=== PATIENT | female | born 1960 | race Caucasian/White ===

== ENCOUNTER 2018-07-03 23:22 | Emergency (ER) | payer MEDICARE, MEDICAID ==
[~2018-07-03] VITALS: Ht 172.7 cm; Wt 100.0 kg
[~2018-07-03 23:22] MED LIST: ARIP400S3 IM; DIPH25CA83 PO; DIVA500T9 PO; FERR325T39 PO; FLUT1DIS4 IH; HYDR50CA PO; PALI819S IM; PROL2.5I IM; RIVA10TA PO; ZOLP10TA5 PO
[2018-07-03] MEDS ORDERED: XARELTO 10 MG (23:34)
[2018-07-03] MEDS ORDERED: ESCITALOPRAM 5 MG (23:34)
[2018-07-03] MEDS ORDERED: MIRTAZAPINE 30 MG (23:34)
[2018-07-03] MEDS ORDERED: DIVALPROEX 500 MG (23:34)
[2018-07-03] MEDS ORDERED: TRAZODONE TAB 50MG (23:34)
[2018-07-03] MEDS ORDERED: INVEGA 3 MG (23:34)
[2018-07-04] MEDS ORDERED: ketorolac trometh inj. 60 MG/2 ML VIAL IM ONE (00:05)
[2018-07-04] MEDS ORDERED: HYDROcodone/acetaminophen 5mg/325mg tablet PO ONE (00:05)
[2018-07-04] MEDS ORDERED: HYDR-3965 PO (00:05)
[2018-07-04] MEDS ORDERED: acetaminophen 325mg tablet PO ONE (00:05)
[2018-07-04 00:45] VITALS: BP 132/72
== END 2018-07-04 00:52 | disposition home or self-care (01) ==
LOC: ER 23:22
DX: G89.29 Other chronic pain (principal); M54.5 Low back pain; J43.9 Emphysema, unspecified; M19.90 Unspecified osteoarthritis, unspecified site; Z86.718 Personal history of other venous thrombosis and embolism; F15.90 Other stimulant use, unspecified, uncomplicated; Z98.890 Other specified postprocedural states; Z88.8 Allergy status to other drugs, medicaments and biological substances; Z79.899 Other long term (current) drug therapy; Z87.891 Personal history of nicotine dependence; Z56.0 Unemployment, unspecified
CPT/HCPCS: 96372; 99283; J1885

== ENCOUNTER 2019-07-13 12:23 | Emergency (ER) | payer MEDICARE, MEDICAID ==
[~2019-07-13] VITALS: Ht 175.3 cm; Wt 109.1 kg
[~2019-07-13 12:23] MED LIST changes: +DIVALPROEX 500 MG; +ESCITALOPRAM 5 MG; +INVEGA 3 MG; +MIRTAZAPINE 30 MG; +TRAZODONE TAB 50MG; +XARELTO 10 MG
[2019-07-13 12:33] VITALS: BP 127/87
[2019-07-14] MEDS ORDERED: OXYB5TAB16 PO (23:34)
[2019-07-14] MEDS ORDERED: ALBU18HF2 INH (23:34)
== END 2019-07-13 14:45 | disposition left against medical advice (07) ==
LOC: ER 12:24
DX: M25.551 Pain in right hip (principal); M25.511 Pain in right shoulder; M25.571 Pain in right ankle and joints of right foot; M25.531 Pain in right wrist; F17.210 Nicotine dependence, cigarettes, uncomplicated; Z53.21 Procedure and treatment not carried out due to patient leaving prior to being seen by health care provider; W22.01XA Walked into wall, initial encounter; Y93.89 Activity, other specified; Y92.009 Unspecified place in unspecified non-institutional (private) residence as the place of occurrence of the external cause; Y99.8 Other external cause status

== ENCOUNTER 2019-07-14 22:25 | Emergency (ER) | payer MEDICARE, MEDICAID ==
[~2019-07-14] VITALS: Ht 175.3 cm; Wt 127.3 kg
[2019-07-14] MEDS ORDERED: LORazepam 2 mg/ml vial IM ONE (22:50)
[2019-07-14] MEDS ORDERED: nystatin 15 GM powder TP ONE (22:50)
--- NOTE | 2019-07-14 22:55 | NUR ---
POISON CONTROL CONTACTED
[2019-07-14 22:57] LABS: MEAN PLATELET VOLUME 8.8 FL (7.4-10.4)
[2019-07-14 22:59] LABS: BASOPHILS % (AUTO) 0.2 % (0-1); EOSINOPHILS # (AUTO) 0.1 X10'3 (0-0.9); EOSINOPHILS % (AUTO) 1.5 % (0-6); HEMOGLOBIN 10.2 g/dl (12.0-16.0); LYMPHOCYTES # (AUTO) 1.3 X10'3 (1.1-4.8); LYMPHOCYTES % (AUTO) 18.4 % (21-51); MEAN CORPUSCULAR VOLUME 96.9 FL (78-98); MONOCYTES % (AUTO) 13.9 % (2-12); NEUTROPHILS # (AUTO) 4.6 X10'3 (1.8-7.7); PLATELET COUNT 159 X10'3 (140-440); RED CELL DISTRIBUTION WIDTH 13.4 % (11.5-14.5); WHITE BLOOD COUNT 6.9 X10'3 (4.5-11.0)
--- NOTE | 2019-07-14 22:59 | NUR ---
PT TO CT WITH HOME HEALTH CLINICAL LIAISON AND HOME SERVICE TECHNICIAN SIMON
[2019-07-14 23:11] LABS: CLARITY,URINE SLIGHTLY CLOUDY (Clear); COLOR,URINE YELLOW (Yellow); GLUCOSE, URINE NEGATIVE (Neg); KETONES,URINE NEGATIVE (Neg); LEUKOCYTE ESTERASE ,URINE TRACE (Neg); NITRITES, URINE NEGATIVE (Neg); OCCULT BLOOD,URINE NEGATIVE (Neg); PH,URINE 6.5 (4.8-8.0); PROTEIN,URINE NEGATIVE (Neg); UROBILINOGEN,URINE 0.2 E.U/dL (0.2-1.0)
[2019-07-14 23:17] LABS: UA COLLECTION TYPE CLN CATCH MIDSTREAM
[2019-07-14 23:18] LABS: URINE AMPHETAMINE SCREEN POSITIVE (Neg); URINE BARBITUATE SCREEN NEGATIVE (Neg); URINE BENZODIAZEPINES SCREEN NEGATIVE (Neg); URINE CANNABINOID SCREEN POSITIVE (Neg); URINE COCAINE SCREEN NEGATIVE (Neg); URINE METHADONE SCREEN NEGATIVE (Neg); URINE OPIATE SCREEN NEGATIVE (Neg); URINE PHENCYCLIDINE SCREEN NEGATIVE (Neg)
[2019-07-14 23:19] LABS: BACTERIA,URINE FEW /HPF (Neg); RBC,URINE NONE SEEN /HPF (0-2); SQUAMOUS EPITHELIAL CELL,UR MODERATE /LPF (FEW); WBC,URINE 0-4 /HPF (0-4)
[2019-07-14 23:23] LABS: ALANINE AMINOTRANSFERASE 7 U/L (12-78); ALBUMIN 2.6 G/DL (3.4-5.0); ALBUMIN/GLOBULIN RATIO 0.7 (1.1-1.5); ALKALINE PHOSPHATASE 55 IU/L (46-116); ANION GAP 7 (8-16); ASPARTATE AMINO TRANSFERASE 15 U/L (10-37); BILIRUBIN,TOTAL 0.1 MG/DL (0.1-1.0); BLOOD UREA NITROGEN 21 MG/DL (7-18); BUN/CREATININE RATIO 17.1 (6.6-38.0); CALCIUM 8.3 MG/DL (8.5-10.1); CHLORIDE 103 MMOL/L (99-107); CREATININE 1.23 MG/DL (0.40-0.90); ETHANOL < 0.010 GM/DL (0.0-0.010); GLUCOSE 120 MG/DL (70-104); POTASSIUM 3.3 MMOL/L (3.5-5.1); SODIUM 136 MMOL/L (135-145); TOTAL CARBON DIOXIDE 26.1 MMOL/L (24-32); TOTAL PROTEIN 6.1 G/DL (6.4-8.2); eGFR 45 ML/MIN
[2019-07-14 23:24] LABS: VALPROATE 29 UG/ML (50-100)
[2019-07-14 23:25] LABS: ACETAMINOPHEN < 2.0 UG/ML (10-30)
[2019-07-14] MEDS ORDERED: OXYB5TAB16 PO (23:34)
[2019-07-14] MEDS ORDERED: ALBU18HF2 INH (23:34)
--- NOTE | 2019-07-15 00:41 | NUR ---
POISON CONTROL CONTACTED IN REGARDS TO PT STATING SHE TOOK 9 500 MG DEPAKOTE .
--- NOTE | 2019-07-15 00:43 | NUR ---
POSION CONTROL ASKED ABOUT VS 98 % RA RR 18 127/72 76 RECOMEND TO CHECK VALORIC ACID Q 4 HRS FOR ELEVATION WELL AMMONIA LEVEL . REPRESENTIVE STATSES THAT THE STATED AMOUNT OF PILLS THE PATIENT TOOK WAS NOT TOXIC HOWEVER THE VALPORIC ACID SHOULD BE FOLLOWED FOR [address] GERBER OF THE CALL .
--- NOTE | 2019-07-15 00:48 | NUR ---
PT TRANSFERED OVER TO OVERFLOW BED 23 VIA GURNEY .
--- NOTE | 2019-07-15 00:53 | NUR ---
The patient tranferred to bed #23 via [facility]. She is orented to day and date. She is rapidly talking but is very tangential.
--- NOTE | 2019-07-15 01:09 | NUR ---
packet faxed to [facility]
--- NOTE | 2019-07-15 04:16 | NUR ---
The patient currently appears to be sleeping
--- NOTE | 2019-07-15 05:09 | NUR ---
The patient appears to be sleeping
--- NOTE | 2019-07-15 05:55 | NUR ---
Received call from poison control who are recommended a repeat depakote level and an amonia level and Dr. Carmen was made aware.
--- NOTE | 2019-07-15 06:57 | NUR ---
Patient resting in bed peacefully at this time. Audibly snoring, no distress observed.
--- NOTE | 2019-07-15 08:42 | NUR ---
Zay, [facility] is at bedside assessing patient. No distress observed.
--- NOTE | 2019-07-15 09:17 | NUR ---
Zay from [facility] is going to keep this patient on a mental health hold. Patient is heard yelling and cussing at Zay, stating, "he is in my ass, get out of here". Patient was redirectable and is currently resting in bed peacefully
--- NOTE | 2019-07-15 09:23 | NUR ---
Spoke to Poison Control. No further actions recommended at this time.
--- NOTE | 2019-07-15 11:11 | NUR ---
pt sleeping and snoring in bed. no needs at this time.
--- NOTE | 2019-07-15 12:18 | NUR ---
pt up to bathroom with walker and nurse aid assistance.
[2019-07-15] MEDS ORDERED: POTASSIUM BICARB 20meq eff tab 20 MEQ TABLET.EFF PO ONE (14:05)
--- NOTE | 2019-07-15 14:16 | NUR ---
sitting up in bed responding to internal stemuli. occationally gets loud and worked up then calms down. up to bathroom with walker for stability.
--- NOTE | 2019-07-15 14:52 | NUR ---
pt states she smokes a pack of cigarettes a day and requesting a nicotine patch. Dr. Miranda aware and order obtained for patch.
[2019-07-15] MEDS: nicotine 14mg patch - 24hr TD SCH (15:05)
--- NOTE | 2019-07-15 17:19 | NUR ---
pt sitting up in bed shouting obsenities. communicating with internal stimuli. order for Ativan 2mg PO obtained. will administer.
[2019-07-15] MEDS ORDERED: LORazepam 1 MG tablet PO ONE (17:20)
--- NOTE | 2019-07-15 17:32 | NUR ---
pt ambulated to bathroom with walker, no assistance needed. po ativan given.
--- NOTE | 2019-07-15 17:45 | NUR ---
pt acting out and yelling, demanding food. calling the staff names. asked pt to sit in room and calm herself, walked to room and sat in bed but still talking loud and cursing. pt not making any sense. flight of ideas.
[2019-07-15] MEDS ORDERED: albuterol 2.5 MG/3 ML nebule NEB PRN (19:10)
[2019-07-15] MEDS: divalproex sod 250mg ER (24-hour) tablet PO SCH (21:23)
--- NOTE | 2019-07-16 00:28 | NUR ---
relieving RN for break, pt is sleeping on bed, resp even and unlabored
--- NOTE | 2019-07-16 01:25 | NUR ---
Pt is sleeping, no s/s of distress noted.
--- NOTE | 2019-07-16 02:27 | NUR ---
Pt is sleeping, no s/s of distress noted. rr unlabored.
--- NOTE | 2019-07-16 03:41 | NUR ---
Pt is sleeping, no s/s of distress noted. rr unlabored.
--- NOTE | 2019-07-16 05:10 | NUR ---
Pt continues to sleep, rr unlabored, no s/s of distress noted.
--- NOTE | 2019-07-16 07:04 | NUR ---
asleep laying on side respirations even and unlabored
[2019-07-16] MEDS: oxybutynin 5mg tablet PO SCH (07:46)
[2019-07-16] MEDS: nicotine 14mg patch - 24hr TD SCH (07:46)
[2019-07-16] MEDS: divalproex sod 250mg ER (24-hour) tablet PO SCH ×2 (07:46→20:16)
--- NOTE | 2019-07-16 08:09 | NUR ---
Patient done eating breakfast laying down on side resting awake in bed
--- NOTE | 2019-07-16 09:03 | NUR ---
using the restroom
--- NOTE | 2019-07-16 09:18 | NUR ---
resting in bed
--- NOTE | 2019-07-16 09:32 | NUR ---
Laying in bed keeps requesting juice and/or coffee
--- NOTE | 2019-07-16 10:26 | NUR ---
Patient did not urinate
--- NOTE | 2019-07-16 11:00 | NUR ---
sleeping in bed
--- NOTE | 2019-07-16 11:07 | NUR ---
move patient to room 20 further away from the fire alarm. Addendum: 07/16/19 at 1622 by IBIS wrong patient
--- NOTE | 2019-07-16 14:01 | NUR ---
Sleeping on side
--- NOTE | 2019-07-16 14:43 | NUR ---
using the restroom
--- NOTE | 2019-07-16 14:46 | NUR ---
back in bed
--- NOTE | 2019-07-16 15:00 | NUR ---
sitting up in bed eating a snack
[2019-07-16] MEDS ORDERED: RIVA10TA PO (15:55)
[2019-07-16] MEDS ORDERED: diphenhydrAMINE 25mg capsule PO ONE (16:15)
--- NOTE | 2019-07-16 16:22 | NUR ---
Sitting up in bed
--- NOTE | 2019-07-16 17:02 | NUR ---
talking to staff
--- NOTE | 2019-07-16 18:03 | NUR ---
Talking to staff
[2019-07-17 05:58] VITALS: BP 159/94
--- NOTE | 2019-07-17 08:00 | NUR ---
[facility] called and is requesting a CXR on pt prior to being accepted upstairs. [facility] would like everyone accepted to have a COVID-19 test. cake puller Kelly informed and will ask MD if he agrees to CXR.
[2019-07-17] MEDS: nicotine 14mg patch - 24hr TD SCH (08:52)
[2019-07-17] MEDS: oxybutynin 5mg tablet PO SCH (08:53)
[2019-07-17] MEDS: divalproex sod 250mg ER (24-hour) tablet PO SCH (08:53)
--- NOTE | 2019-07-17 09:07 | NUR ---
called [facility] and requested the pt's med list. they state they will fax it over.
[2019-07-17] MEDS ORDERED: amox tr/potassium clavulanate 875/125mg TAB PO ONE (09:25)
[2019-07-17] MEDS ORDERED: LIDO1ADH67 TOP (10:35)
[2019-07-17] MEDS ORDERED: RIVA10TA PO (10:35)
[2019-07-17] MEDS ORDERED: PALI6TAB PO (10:35)
[2019-07-17] MEDS ORDERED: OXYC-658 PO (10:35)
[2019-07-17] MEDS ORDERED: PROL2.5I IM (10:35)
[2019-07-17] MEDS ORDERED: DIPH50CA37 PO (10:35)
[2019-07-17] MEDS ORDERED: TRAM50TA2 PO (10:40)
[2019-07-17] MEDS ORDERED: OXYB5TAB16 PO (10:40)
[2019-07-17] MEDS ORDERED: traMADol 50MG tablet PO PRN (10:55)
[2019-07-17] MEDS ORDERED: fluphenazine decanoate**IM** 25mg/ml inj. IM SCH (10:55)
--- NOTE | 2019-07-17 11:35 | NUR ---
Pt's covid test back:negative. FELIPE Walker @ [facility] notified as transfer was pending results.
[2019-07-17] MEDS ORDERED: rivaroxaban 10mg tablet PO SCH (12:00)
[2019-07-17] MEDS ORDERED: PALIPERIDONE 3 MG TAB.ER.24 PO SCH (12:00)
--- NOTE | 2019-07-17 12:42 | NUR ---
Pt accepted at [facility]. Pt being transferred with belongings, med form for meds stored in pharmacy and discharge paperwork in stable condition.
[2019-07-17] MEDS ORDERED: AMOX-422 PO (15:44)
[2019-07-17] MEDS ORDERED: amox tr/potassium clavulanate 875/125mg TAB PO SCH (17:30)
[2019-07-17] MEDS ORDERED: oxybutynin 5mg tablet PO SCH (21:00)
[2019-07-17] MEDS ORDERED: diphenhydrAMINE 25mg capsule PO SCH (21:00)
[2019-07-18] MEDS ORDERED: LIDOcaine 5% patch TP PRN (08:00)
== END 2019-07-17 12:30 ==
LOC: ER 22:25
DX: F15.959 Other stimulant use, unspecified with stimulant-induced psychotic disorder, unspecified (principal); F31.9 Bipolar disorder, unspecified; R41.82 Altered mental status, unspecified; J43.9 Emphysema, unspecified; M19.90 Unspecified osteoarthritis, unspecified site; G89.29 Other chronic pain; F20.9 Schizophrenia, unspecified; Z86.718 Personal history of other venous thrombosis and embolism; Z98.890 Other specified postprocedural states; Z88.8 Allergy status to other drugs, medicaments and biological substances; Z79.899 Other long term (current) drug therapy
CPT/HCPCS: 96372; 99285; J2060; 36415; 70450; 71045; 80053; 80164; 80178; 80305; 80320; 80329; 81001; 82140; 85025; 87635; 93005

== ENCOUNTER 2019-07-17 12:28 | Inpatient (IN) | payer MEDICARE, MEDICAID ==
[~2019-07-17] VITALS: Ht 172.7 cm; Wt 110.5 kg
[~2019-07-17 12:28] MED LIST changes: +ALBU18HF2 INH; -ARIP400S3 IM; -DIPH25CA83 PO; +DIPH50CA37 PO; -DIVALPROEX 500 MG; -ESCITALOPRAM 5 MG; -FERR325T39 PO; -FLUT1DIS4 IH; -HYDR50CA PO; -INVEGA 3 MG; +LIDO1ADH67 TOP; -MIRTAZAPINE 30 MG; +OXYB5TAB16 PO; +OXYC-658 PO; +PALI6TAB PO; +TRAM50TA2 PO; -TRAZODONE TAB 50MG; -XARELTO 10 MG; -ZOLP10TA5 PO
[2019-07-17] MEDS ORDERED: mag hydrox/Alum hydrox/simeth 30ml oral suspension PO PRN (13:10)
[2019-07-17] MEDS ORDERED: acetaminophen 325mg tablet PO PRN ×2 (13:10)
[2019-07-17] MEDS ORDERED: quetiapine 100mg tablet PO PRN (13:10)
[2019-07-17] MEDS ORDERED: loperamide 2mg capsule PO PRN (13:10)
[2019-07-17] MEDS ORDERED: magnesium hydroxide 30ml (MOM) UD suspension PO PRN (13:10)
[2019-07-17] MEDS ORDERED: NICOTINE POLACRILEX 2 MG LOZENGE BC PRN (13:10)
[2019-07-17] MEDS ORDERED: traZODone 50mg tablet PO PRN (13:10)
[2019-07-17 15:00] VITALS: BP 126/81
[2019-07-17] MEDS: nystatin 15 GM powder TP SCH ×2 (15:30→20:35)
[2019-07-17] MEDS ORDERED: AMOX-422 PO (15:44)
--- NOTE | 2019-07-17 15:45 | NUR ---
Pt on a 5150 after BIB [facility] for DTS and GD; pt supposedly over dosed on 7 depakote and couldn't make viable plan for self care. Pt stated she was Radha Price. Pt was positive for methamphetamines and THC. Pt was cooperative with admission. Pt denies S.I. and H.I. and auditory hallucinations but thought blocking was observed as was whispering to herself. Pt did exhibit delusional thought processes and stated, "my mother in law was Papito Mahoney and she at 47 years old." Pt tearful at times during assessment and stated she was sad r/t her passing away 1 1/2 years ago. Pt uses a walker, but is independent with ADLs. Skin check and pictures completed by Rick RNs and belongings checked and logged in.
[2019-07-17] MEDS ORDERED: fluphenazine decanoate**IM** 25mg/ml inj. IM SCH (16:05)
[2019-07-17] MEDS ORDERED: albuterol 2.5 MG/3 ML nebule NEB PRN (16:05)
[2019-07-17] MEDS ORDERED: LIDOcaine 5% patch TP PRN (16:05)
[2019-07-17] MEDS ORDERED: FLUPHENAZINE DECANOATE IM SCH (16:30)
[2019-07-17 20:03] VITALS: BP 148/97
[2019-07-17] MEDS: amox tr/potassium clavulanate 875/125mg TAB PO SCH (20:35)
[2019-07-17] MEDS: oxybutynin 5mg tablet PO SCH (20:35)
[2019-07-17] MEDS: divalproex sod 250mg ER (24-hour) tablet PO SCH (20:35)
[2019-07-17] MEDS: PALIPERIDONE 3 MG TAB.ER.24 PO SCH (20:35)
[2019-07-17] MEDS: diphenhydrAMINE 25mg capsule PO SCH (20:35)
[2019-07-17] MEDS ORDERED: nystatin 15 GM powder TP SCH (21:00)
[2019-07-17 21:05] LABS: CLARITY,URINE CLEAR (Clear); COLOR,URINE YELLOW (Yellow); GLUCOSE, URINE NEGATIVE (Neg); KETONES,URINE NEGATIVE (Neg); LEUKOCYTE ESTERASE ,URINE NEGATIVE (Neg); NITRITES, URINE NEGATIVE (Neg); OCCULT BLOOD,URINE NEGATIVE (Neg); PROTEIN,URINE NEGATIVE (Neg); UROBILINOGEN,URINE 0.2 E.U/dL (0.2-1.0)
[2019-07-17 21:09] LABS: UA COLLECTION TYPE NON-SPECIFIED
--- NOTE | 2019-07-18 01:02 | NUR ---
Nursing Progress Note: [facility] Legal hold: 5150 Client on involuntary status for DTS. Report received from ANGE Walker with use of SBAR. Why are they here: Pt was placed on a 5150 hold due to DTS. Pt apparently overdosed on 7, 500mg Depakote and could not make a liable plan to care for self. Pt presents as delusional and disorganized thought process. She was positive for methamphetamine. Pt is currently denying any S/I, H/I and states she never had thoughts to harm herself. She has a history of COPD, Emphysema, Arthritis, Chronic Pain, Chronic Back Pain, Deep Vein Thrombosis, Bipolar, Depression, Psychosis, Schizophrenia. Assessment What has happened this shift: Pt was in her room during shift change. She states that she is here by mistake. Apparently she was trying to light a cigarette and burned one of her breasts. Her friend called the automobile glass technician and they decided to bring her in. Before leaving she states that she took her Depakote and since it was 7 of them, they believed she was trying to kill herself. She denies any s/i, h/i, and just wants to get home by mothers day because she is hoping to take her cat to [place] with her daughter. When asked about hallucinations, she denies but states that she has had them before. Talks about a time when she thought that she had a rope wrapped around her throat but knows that it wasnt true because she was the only one home. Pt becomes teary when talking about her son that he never met. She states that he was taken away when he was 3 months old. She does make some delusional statements, as reported by PCT, patient was looking at a magazine and is adamant that the person in the magazine is her daughter. She does not appear to be responding to internal stimuli. UA was obtained due to strong odor but results came back negative. She does admit to being incontinent and had a couple incidents thought out the night. S/I, H/I: Denies A/VH: Denies Sleep: Currently sleeping, see sleep assessment for total hours ADL's: Requires assistance, incontinent of urine, uses walker Group attendance: None during shift superintendent caustic cresylate Were meds taken: Yes Any med S/E: None reported or observed Mental Status Exam Appearance: Disheveled, wearing personal clothing, hair is messy and unkempt Eye contact: Good, direct Behavior: Cooperative, calm, Speech: There is some thought blocking observed, she also mumbles at times Mood: Euthymic Affect: Congruent with mood Thought process: Circumstantial Thought Content: Family, her cat, going home by mother's day, medication Cognition: Alert and oriented X4 Insight: Poor Judgment: Poor Interventions PRN's used: Tylenol Therapeutic interventions: 1:1 assessment, therapeutic conversation, active listening, maintained a safe and therapeutic environment, monitored behaviors and need for intervention, encouragement to perform personal hygiene, Q 15 min safety checks. Restraints/seclusion/emergency medication: N/A Justification of Continued Inpatient Treatment: Pt requires interruption of current crisis, medication administration, and is in need of a safe, supportive environment. Medication adjustments to stabilize patient and decrease risk of readmission.
[2019-07-18 07:19] VITALS: BP 131/80
[2019-07-18 07:53] LABS: HEMOGLOBIN A1C 5.4 % (4.5-6.2)
[2019-07-18 07:56] LABS: CHOL/HDL RATIO 2.1 (0.00-4.99); CHOLESTEROL 90 MG/DL (0-200); HDL CHOLESTEROL 42 MG/DL (35-60); LDL CHOLESTEROL 36 MG/DL (50-100); TRIGLYCERIDES 39 MG/DL (20-135)
[2019-07-18] MEDS: amox tr/potassium clavulanate 875/125mg TAB PO SCH ×2 (08:10→20:19)
[2019-07-18] MEDS: rivaroxaban 10mg tablet PO SCH (08:10)
[2019-07-18] MEDS: divalproex sod 250mg ER (24-hour) tablet PO SCH ×2 (08:10→20:21)
[2019-07-18] MEDS: nicotine 21mg patch - 24 hr TD SCH (08:11)
[2019-07-18] MEDS: nystatin 15 GM powder TP SCH ×3 (08:11→21:34)
[2019-07-18] MEDS: LORazepam 1 MG tablet PO PRN (14:54)
--- NOTE | 2019-07-18 16:39 | NUR ---
Nursing Progress Note: Legal hold: 5150 Client on involuntary status for DTS. Report received from FELIPE Oliva with use of SBAR. Why are they here: Pt was placed on a 5150 hold due to DTS. Pt apparently overdosed on 7, 500mg Depakote and could not make a liable plan to care for self. Pt presents as delusional and disorganized thought process. She was positive for methamphetamine. Pt is currently denying any S/I, H/I and states she never had thoughts to harm herself. She has a history of COPD, Emphysema, Arthritis, Chronic Pain, Chronic Back Pain, Deep Vein Thrombosis, Bipolar, Depression, Psychosis, Schizophrenia. Assessment What has happened this shift: Patient awake at change of shift. Patient is busy socializing with peers. Patient reports that she took 7 Depakote because she couldn't remember if she had taken them in the morning. She adamantly states that it was not a suicide attempt. She does state that she burned her hair and her breast on the stove prior to admit. Patient denies A/V/H. S/I, H/I: Denies A/VH: Denies Sleep: Napped after breafast ADL's: Needs assistance. Walks with walker, weak gait. Group attendance: NA Were meds taken: Yes Any med S/E: None reported or observed Mental Status Exam Appearance: Large disheveled woman wearing personal attire. Eye contact: Good, direct Behavior: Cooperative, calm, socializes. Speech: Clear, hyperverbal. Mood: Euthymic Affect: Congruent with mood Thought process: Circumstantial Thought Content: Family, her cat, going home by mother's day Cognition: Alert and oriented X4 Insight: Poor Judgment: Poor Interventions PRN's used: Ativan Therapeutic interventions: 1:1 assessment, therapeutic conversation, active listening, maintained a safe and therapeutic environment, monitored behaviors and need for intervention, encouragement to perform personal hygiene, Q 15 min safety checks. Restraints/seclusion/emergency medication: N/A Justification of Continued Inpatient Treatment: Pt requires interruption of current crisis, medication administration, and is in need of a safe, supportive environment. Medication adjustments to stabilize patient and decrease risk of readmission.
[2019-07-18 20:00] VITALS: BP 138/91
[2019-07-18] MEDS: PALIPERIDONE 3 MG TAB.ER.24 PO SCH (20:20)
[2019-07-18] MEDS: diphenhydrAMINE 25mg capsule PO SCH (20:20)
[2019-07-18] MEDS: oxybutynin 5mg tablet PO SCH (20:20)
--- NOTE | 2019-07-19 02:28 | NUR ---
Nursing Progress Note: Legal hold: 5150 Client on involuntary status for DTS. Report received from FELIPE Walker with use of SBAR. Why are they here: Pt was placed on a 5150 hold due to DTS. Pt apparently overdosed on 7, 500mg Depakote and could not make a liable plan to care for self. Pt presents as delusional and disorganized thought process. She was positive for methamphetamine. Pt is currently denying any S/I, H/I and states she never had thoughts to harm herself. She has a history of COPD, Emphysema, Arthritis, Chronic Pain, Chronic Back Pain, Deep Vein Thrombosis, Bipolar, Depression, Psychosis, Schizophrenia. Assessment What has happened this shift: Patient in room sleeping at the start of the shift. She awoke just before Snack and Meds. Pt ambulated with her Fww out of her room to a chair in the aleman by the Nurses station. She was med compliant and had no complaints. Pt returned to her room after snack and Meds. Pt up at 0200 c/o bad dream and requested a prn for sleep that was helpful. S/I, H/I: Denies A/VH: Denies Sleep: Napped ADL's: Needs assistance. Walks with walker, weak gait. Group attendance: NA Were meds taken: Yes Any med S/E: None reported or observed Mental Status Exam Appearance: Large disheveled woman wearing personal attire. Eye contact: Good, direct Behavior: Cooperative, calm, socializes. Speech: Clear, hyperverbal. Mood: Euthymic Affect: Congruent with mood Thought process: Circumstantial Thought Content: Family, her cat, going home by mother's day Cognition: Alert and oriented X4 Insight: Poor Judgment: Poor Interventions PRN's used: Trazodone Therapeutic interventions: 1:1 assessment, therapeutic conversation, active listening, maintained a safe and therapeutic environment, monitored behaviors and need for intervention, encouragement to perform personal hygiene, Q 15 min safety checks. Restraints/seclusion/emergency medication: N/A Justification of Continued Inpatient Treatment: Pt requires interruption of current crisis, medication administration, and is in need of a safe, supportive environment. Medication adjustments to stabilize patient and decrease risk of readmission.
[2019-07-19] MEDS: divalproex sod 250mg ER (24-hour) tablet PO SCH ×2 (07:11→20:32)
[2019-07-19] MEDS: nystatin 15 GM powder TP SCH ×3 (07:11→20:01)
[2019-07-19] MEDS: nicotine 21mg patch - 24 hr TD SCH (07:11)
[2019-07-19] MEDS: rivaroxaban 10mg tablet PO SCH (07:12)
[2019-07-19] MEDS: amox tr/potassium clavulanate 875/125mg TAB PO SCH ×2 (07:12→20:32)
[2019-07-19] MEDS: LORazepam 1 MG tablet PO PRN ×2 (07:12→14:12)
[2019-07-19] MEDS: traMADol 50MG tablet PO PRN ×2 (07:33→19:27)
[2019-07-19 07:42] VITALS: BP 101/62
--- NOTE | 2019-07-19 15:51 | NUR ---
Nursing Progress Note: Legal hold: 5150 Client on involuntary status for DTS. Report received from Ashleigh Mota RN with use of SBAR. Why are they here: Pt was placed on a 5150 hold due to DTS. Pt apparently overdosed on 7, 500mg Depakote and could not make a plan to care for self. Pt presents as delusional and disorganized thought process. She was positive for methamphetamine. Pt is currently denying any S/I, H/I and states she never had thoughts to harm herself. She has a history of COPD, Emphysema, Arthritis, Chronic Pain, Chronic Back Pain, Deep Vein Thrombosis, Bipolar, Depression, Psychosis, Schizophrenia. Assessment What has happened this shift: Patient is resting in bed peacefully at change of shift. Patient is busy socializing with peers. Patient continues to adamantly state that it was not a suicide attempt when she took her depakote. She reports she was confused. She currently denies SI/HI and A/VH. She takes her medications as ordered without incident. She is seen sitting in the day room and talking to peers and staff. She is also seen napping intermittently throughout the day. She reports some anxiety and pain and medications were provided PRN for these concerns. S/I, H/I: Denies A/VH: Denies Sleep: Napped intermittently throughout the day ADL's: Needs assistance. Walks with walker, weak gait. Group attendance: NA Were meds taken: Yes Any med S/E: None reported or observed Mental Status Exam Appearance: wearing personal clothing, hair is disheveled Eye contact: Good, direct Behavior: Cooperative, calm, socializes. Speech: Clear, hyperverbal. Mood: Euthymic Affect: Congruent with mood Thought process: Circumstantial Thought Content: wanting to go home, wanting juice and snacks, being anxious, being in pain. Cognition: Alert and oriented X4 Insight: Poor Judgment: Poor Interventions PRN's used: Ativan x2, tramadol Therapeutic interventions: 1:1 assessment, therapeutic conversation, active listening, maintained a safe and therapeutic environment, monitored behaviors and need for intervention, encouragement to perform personal hygiene, Q 15 min safety checks. Restraints/seclusion/emergency medication: N/A Justification of Continued Inpatient Treatment: Pt requires interruption of current crisis, medication administration, and is in need of a safe, supportive environment. Medication adjustments to stabilize patient and decrease risk of readmission.
[2019-07-19 20:08] VITALS: BP 143/95
[2019-07-19] MEDS: oxybutynin 5mg tablet PO SCH (20:32)
[2019-07-19] MEDS: PALIPERIDONE 3 MG TAB.ER.24 PO SCH (20:32)
[2019-07-19] MEDS: diphenhydrAMINE 25mg capsule PO SCH (20:34)
--- NOTE | 2019-07-20 02:55 | NUR ---
Nursing Progress Note: Legal hold: 5150 Client on involuntary status for DTS. Report received from Ashleigh Mota RN with use of SBAR. Why are they here: Pt was placed on a 5150 hold due to DTS. Pt apparently overdosed on 7, 500mg Depakote and could not make a plan to care for self. Pt presents as delusional and disorganized thought process. She was positive for methamphetamine. Pt is currently denying any S/I, H/I and states she never had thoughts to harm herself. She has a history of COPD, Emphysema, Arthritis, Chronic Pain, Chronic Back Pain, Deep Vein Thrombosis, Bipolar, Depression, Psychosis, Schizophrenia. Assessment What has happened this shift: Patient was napping off and on this shift. Came out of room for a while and listened to a peer sing and play the [employer]. She requested a Ultram for pain which was helpful and took her meds with out issue. Ate snack and returned to her room and laid down. S/I, H/I: Denies A/VH: Denies Sleep: Napped intermittently throughout the day ADL's: Needs assistance. Walks with walker, weak gait. Group attendance: NA Were meds taken: Yes Any med S/E: None reported or observed Mental Status Exam Appearance: wearing personal clothing, hair is disheveled Eye contact: Good, direct Behavior: Cooperative, calm, socializes. Speech: Clear, hyperverbal. Mood: Euthymic Affect: Congruent with mood Thought process: Circumstantial Thought Content: wanting to go home, wanting juice and snacks, being anxious, being in pain. Cognition: Alert and oriented X4 Insight: Poor Judgment: Poor Interventions PRN's used: Tramadol Therapeutic interventions: 1:1 assessment, therapeutic conversation, active listening, maintained a safe and therapeutic environment, monitored behaviors and need for intervention, encouragement to perform personal hygiene, Q 15 min safety checks. Restraints/seclusion/emergency medication: N/A Justification of Continued Inpatient Treatment: Pt requires interruption of current crisis, medication administration, and is in need of a safe, supportive environment. Medication adjustments to stabilize patient and decrease risk of readmission.
[2019-07-20 08:00] VITALS: BP 119/76
[2019-07-20] MEDS: nicotine 21mg patch - 24 hr TD SCH (08:25)
[2019-07-20] MEDS: divalproex sod 250mg ER (24-hour) tablet PO SCH (08:25)
[2019-07-20] MEDS: LORazepam 1 MG tablet PO PRN (08:25)
[2019-07-20] MEDS: amox tr/potassium clavulanate 875/125mg TAB PO SCH (08:25)
[2019-07-20] MEDS: traMADol 50MG tablet PO PRN (08:26)
[2019-07-20] MEDS: nystatin 15 GM powder TP SCH (08:27)
[2019-07-20] MEDS: rivaroxaban 10mg tablet PO SCH (08:29)
--- NOTE | 2019-07-20 10:32 | NUR ---
DCP Presenting Issues: Per consultation w/attending PAAmber, pt is ready for d/c and requests dcp services for pt to d/c today. Furthermore, pt did not receive her injection while here as [facility]'s pharmacy did not have the medication in stock, pt will need to get her injection from [facility] upon d/c. Interventions: SS met with pt & engaged her in dcp activities, per session pt wants to go home, has IHSS provider, currently receives 89 hours of IHSS support and feels that this is adequate. Pt denies any SI/HI/CAH. Pt informed SS that she is working w/[facility] STAR team and has a CM there. SS had t/c with Maria A Black, pt's STAR CM, per t/c, Maria A will ensure that pt get her injection and requests that SS schedule a f/u with Dr. Locke @ [facility] for pt. SS had t/c with [facility] cloth opener hand, left requesting a rt p/c to coordinate post-hosp f/u. Attending physician notified of dcp, and need for meds & d/c summary to be finalized. Pt's meds to be faxed to [facility]. Plan: Pt to d/c today. Addendum: 07/20/19 at 1040 by Citlalli Barlow SS Amended: Links added.
--- NOTE | 2019-07-20 11:30 | NUR ---
Patient discharged from the unit. All items inventoried and in patient's possession at time of discharge. No distress observed. Pt is transported via WC accompanied by unit tech to be transported by county workerMaria A. She is pleasant and cooperative with care and denies A/VH, SI/HI. She had pain in the morning that is chronic for her and PRN Tramadol was given. Patient also c/o anxiety and therapeutic massage and PRN Ativan were administered. Patient was given education on nicotine replacement and cessation. All paperwork and plan of care discussed with patient, questions were answered and patient verbalized understanding. All medications reviewed.
--- NOTE | 2019-07-20 12:26 | NUR ---
Pt's d/c & picked up by her [facility] . SS referral closed. Citlalli Barlow, SUGAR LABORATORY ASSISTANT Addendum: 07/20/19 at 1226 by Citlalli Barlow SS Amended: Links added.
== END 2019-07-20 11:30 | disposition home or self-care (01) | DRG 885 ==
LOC: ADULT MH 12:35
PROVIDERS: ADMIT Psychiatry & Neurology Psychiatry; ATTEND Psychiatry & Neurology Psychiatry
DX: F31.9 Bipolar disorder, unspecified (principal); G30.9 Alzheimer's disease, unspecified; F02.80 Dementia in other diseases classified elsewhere, unspecified severity, without behavioral disturbance, psychotic disturbance, mood disturbance, and anxiety; F15.10 Other stimulant abuse, uncomplicated; F17.200 Nicotine dependence, unspecified, uncomplicated; J43.9 Emphysema, unspecified; G89.29 Other chronic pain; M19.90 Unspecified osteoarthritis, unspecified site; F20.0 Paranoid schizophrenia; M54.9 Dorsalgia, unspecified; Z56.0 Unemployment, unspecified; Z86.718 Personal history of other venous thrombosis and embolism; Z90.5 Acquired absence of kidney; Z91.14 Patient's other noncompliance with medication regimen; Z88.8 Allergy status to other drugs, medicaments and biological substances; Z81.8 Family history of other mental and behavioral disorders
CPT/HCPCS: 36415; 70450; 71045; 80053; 80061; 80164; 80178; 80305; 80320; 80329; 81001; 81003; 82140; 83036; 85025; 87081; 87635; 93005; Q0163